=== PATIENT | female | born 1990 | race Caucasian/White ===

== ENCOUNTER 2021-05-04 12:14 | Outpatient (REF) | payer OTHER, SELFPAY ==
--- NOTE | ~2021-05-04 | XR_ITS ---
EXAMINATION: XR CERVICAL SPINE CLINICAL INFORMATION: Cervical disc herniation COMPARISON: MRI cervical spine from 08/21/2018 TECHNIQUE: Cervical spine, 5 views FINDINGS: The craniocervical junction is normal. The dens and atlantodental articulation are intact. The cervical vertebra have normal height. Alignment is normal. No fracture, subluxation or prevertebral soft tissue swelling. There is straightening of the cervical lordosis. Mild disc space narrowing and small anterior osteophytes at C6-C7. Mild uncovertebral joint hypertrophy with mild neural foraminal narrowing on the right at C4-C5, C5-C6 and C6-C7. The visualized lung apices are normal. XR/XR cervical spine min 6V IMPRESSION: * The cervical vertebra have normal alignment. * Mild discovertebral degenerative change at C6-C7. * Mild right-sided uncovertebral joint hypertrophy is noted at C4-C5, C5-C6 and C6-C7.
== END 2021-05-04 12:15 | disposition home or self-care (01) ==
LOC: HO.XRAY 12:14
PROVIDERS: PCP Internal Medicine; Visit Provider Psychiatry & Neurology Neurology
DX: M50.20 Other cervical disc displacement, unspecified cervical region (principal)
CPT/HCPCS: 72052

== ENCOUNTER 2021-07-20 15:53 | Outpatient (REF) | payer OTHER, SELFPAY ==
--- NOTE | ~2021-07-20 | MR_ITS ---
EXAMINATION: MR CERVICAL SPINE WITHOUT CONTRAST CLINICAL INFORMATION: Disc herniation. COMPARISON: Plain films of the cervical spine 05/04/2021. MRI scan of the cervical spine 08/21/2018. TECHNIQUE: MRI of the cervical spine was obtained using routine sequences without contrast. FINDINGS: VERTEBRAL BODIES AND PARASPINAL SOFT TISSUES: There is mild reversal of the cervical lordosis. There is narrowing of intervertebral disc height at C6-C7, and there are mild edematous endplate signal changes posteriorly and toward the right at this level. Vertebral body heights are maintained and no fractures are demonstrated. Overall, marrow signal is homogenous. There are a few mildly prominent lymph nodes at multiple levels in the neck bilaterally, demonstrated on prior imaging. The right maxillary sinus appears clear on the current study. CERVICOMEDULLARY JUNCTION AND VISUALIZED POSTERIOR FOSSA: The craniocervical and posterior fossa structures are normal. Accounting for artifact, spinal cord signal appears normal. SPINAL LEVELS: C2-C3: The facet joints appear normal bilaterally. Posterior disc contour is normal. There is no spinal cord compression or central stenosis. The neural foramina are patent bilaterally. C3-C4: The facet joints appear normal bilaterally. There is a small left paracentral disc protrusion, but there is no spinal cord compression or central stenosis. The neural foramina are patent bilaterally. C4-C5: The facet joints appear normal. There is a shallow posterior disc protrusion with minimal effacement of CSF ventral to the spinal cord. There is no spinal cord compression or central stenosis. There are uncovertebral osteophytes, and there is mild right foraminal narrowing. C5-C6: The facet joints appear normal. There is a small right-sided disc protrusion. There is no central stenosis or foraminal narrowing. There is mild narrowing of the right neural foramen. C6-C7: The facet joints appear normal bilaterally. There has been interval increase in the posterior disc protrusion at this level with some effacement of CSF ventral to the spinal cord, but there is no spinal cord compression or central stenosis. There is mild bilateral foraminal narrowing. C7-T1: The facet joints appear normal bilaterally. Posterior disc contour is normal. There is no spinal cord compression or central stenosis. The neural foramina are patent bilaterally. MR/MR cervical spine wo con IMPRESSION: 1. There has been interval increase in the posterior disc protrusion at C6-C7. There is no central stenosis or cord compression. There is mild bilateral foraminal narrowing. 2. At C4-C5 there is a shallow posterior disc protrusion. There is no spinal cord compression or central stenosis. There is mild right foraminal narrowing. 3. At C5-C6 there is a small right-sided disc protrusion with right foraminal narrowing. There is no central stenosis at this level.
== END 2021-07-20 15:54 | disposition home or self-care (01) ==
LOC: HO.MRI 15:53
PROVIDERS: Visit Provider Psychiatry & Neurology Neurology
DX: M50.20 Other cervical disc displacement, unspecified cervical region (principal); Q07.00 Arnold-Chiari syndrome without spina bifida or hydrocephalus
CPT/HCPCS: 72141

== ENCOUNTER → 2021-09-03 10:22 | Outpatient (BNVA) | payer OTHER, SELFPAY | PROVIDERS: PCP Internal Medicine; Visit Provider Internal Medicine | DX: Q07.00 Arnold-Chiari syndrome without spina bifida or hydrocephalus (principal); M79.7 Fibromyalgia; G89.29 Other chronic pain; R51.9 Headache, unspecified; Z88.8 Allergy status to other drugs, medicaments and biological substances; Z88.1 Allergy status to other antibiotic agents; Z91.041 Radiographic dye allergy status | CPT/HCPCS: 99202 ==

== ENCOUNTER 2023-04-26 08:35 | Outpatient (REF) | payer OTHER, SELFPAY ==
--- NOTE | ~2023-04-26 | MR_ITS ---
EXAMINATION: MR CERVICAL SPINE WITHOUT CONTRAST CLINICAL INFORMATION: Disc herniation. Arnold-Chiari malformation. COMPARISON: MRI scan of the cervical spine 07/20/2021. TECHNIQUE: MRI of the cervical spine was obtained using routine sequences without contrast. FINDINGS: VERTEBRAL BODIES AND PARASPINAL SOFT TISSUES: The study redemonstrates reversal of the normal cervical lordosis. There is mild narrowing of intervertebral disc height anteriorly at C6-C7. There has been interval decrease in the edematous endplate signal changes posteriorly at this level. Vertebral body heights are maintained, and no fractures are demonstrated. Overall, marrow signal is homogenous. The study redemonstrates multilevel nonspecific mildly prominent lymph nodes. There is minimal opacification of the posterior left maxillary sinus. CERVICOMEDULLARY JUNCTION AND VISUALIZED POSTERIOR FOSSA: The study redemonstrates the sequelae of the Chiari decompression with postoperative changes in the paraspinal soft tissues dorsally. The posterior fossa structures appear normal. Accounting for artifact, spinal cord signal appears normal. SPINAL LEVELS: C2-C3: The facet joints appear normal bilaterally. Posterior disc contour is normal. There is no spinal cord compression or central stenosis. The neural foramina are patent bilaterally. C3-C4: The facet joints appear normal bilaterally. There is a shallow posterior disc protrusion without compression of the spinal cord or central stenosis. The neural foramina are patent bilaterally. C4-C5: The facet joints appear normal. There is a shallow broad-based posterior disc protrusion without significant mass effect on the thecal sac and there is no cord compression or central stenosis. There are uncovertebral osteophytes, and there is mild to moderate right foraminal narrowing. C5-C6: The facet joints appear normal bilaterally. There is a shallow posterior disc protrusion without mass effect on the thecal sac and there is no cord compression or central stenosis. There are right-sided uncovertebral osteophytes and there is moderate to severe foraminal narrowing. C6-C7: The facet joints appear normal bilaterally. There is a posterior protrusion which is slightly more prominent to the left of midline with minimal distortion the ventral thecal sac, similar compared to prior imaging. There is no cord compression or central stenosis. There are uncovertebral osteophytes and there is moderate right and mild left foraminal narrowing. C7-T1: There is mild left facet arthropathy. Posterior disc contour is normal. There is no central stenosis or cord compression the neural foramina are patent bilaterally. MR/MR cervical spine wo con IMPRESSION: 1. The study redemonstrates the sequelae of the Chiari I decompression. 2. At C4-C5 there is a shallow broad-based posterior disc protrusion without cord compression or central stenosis. There is mild to moderate right foraminal narrowing. 3. At C5-C6 there is a shallow posterior disc protrusion without cord compression or central stenosis. There are right-sided uncovertebral osteophytes and there is moderate to severe right foraminal narrowing. 4. At C6-C7 there is a posterior disc protrusion which is slightly more prominent to the left of midline. There is no cord compression or central stenosis. There is moderate right and mild left foraminal narrowing.
== END 2023-04-26 08:36 | disposition home or self-care (01) ==
LOC: HO.MRI 08:35
PROVIDERS: Visit Provider Psychiatry & Neurology Neurology
DX: M50.20 Other cervical disc displacement, unspecified cervical region (principal); G93.5 Compression of brain
CPT/HCPCS: 72141

== ENCOUNTER 2023-12-15 07:19 | Outpatient (REF) | payer OTHER, SELFPAY ==
--- NOTE | ~2023-12-15 | MR_ITS ---
EXAMINATION: MR BRAIN WITHOUT CONTRAST CLINICAL INFORMATION: 33-year-old with history of previous Chiari decompression, with posterior headaches. COMPARISON: 04/26/2023 MRI cervical spine, 07/21/2015 MRI brain. TECHNIQUE: MRI of the brain was obtained using routine sequences without contrast. FINDINGS: Brain Volume: Within normal limits within the limitations of qualitative assessment. Structural: Redemonstrated is evidence of a previous posterior suboccipital craniectomy for Chiari I decompression, with postoperative changes stable from previous MRI of the cervical spine, with an improvement in the appearance of the cerebellar tonsils when compared to the previous MRI. No fluid collections are seen in this region. Brain and Meninges: DWI sequence demonstrates no restricted diffusion to suggest acute or subacute cerebral ischemia. The brain parenchyma is otherwise normal in morphology and signal intensity, stable in appearance from the previous study. No extra-axial fluid collections, space-occupying process or mass effect. Gradient refocused imaging demonstrates no abnormal susceptibility-weighted signal loss to suggest hemorrhage, hemosiderin staining or abnormal mineralization. Ventricles and Subarachnoid Spaces: The ventricular system and subarachnoid spaces are within normal range; there is no hydrocephalus. Orbital Structures: The visualized orbital structures are grossly unremarkable within the limitations of the study. Vascular: Signal voids are noted in the visualized major intracranial vessels. Osseous Structures, Sinuses/Mastoids, Extracranial Soft Tissues: Osseous marrow signal intensity is grossly unremarkable in appearance. There is some mucosal thickening in the maxillary sinuses bilaterally with an air-fluid level noted in the left maxillary sinus on current study and resolution of a large retention cyst noted retrospectively in the right maxillary sinus on the previous exam. Correlate clinically for any evidence of sinusitis. MR/MR head/brain wo con IMPRESSION: 1. Status post suboccipital craniectomy for Chiari I decompression, with improvement in the appearance of the cerebellar tonsils when compared to the previous MRI of the brain, with stable postoperative changes when compared to the previous MRI of the cervical spine. 2. Otherwise unremarkable noncontrast MRI of the brain. 3. Paranasal sinus mucosal inflammatory changes with an air-fluid level in the left maxillary sinus on current study. Correlate clinically for any evidence of sinusitis.
== END 2023-12-15 07:20 | disposition home or self-care (01) ==
LOC: HO.MRI 07:19
PROVIDERS: PCP Internal Medicine; Visit Provider Registered Nurse
DX: Q07.00 Arnold-Chiari syndrome without spina bifida or hydrocephalus (principal)
CPT/HCPCS: 70551

== ENCOUNTER 2025-05-19 11:00 | Outpatient (AMB) | payer OTHER, SELFPAY ==
--- NOTE | 2025-05-19 11:07 | MHC.OFFVIS ---
Intake Visit Reasons: 6m Allergies amoxicillin Allergy (Verified 05/19/25 11:13) Unknown Iodinated Contrast Media Allergy (Verified 05/19/25 11:13) Unknown sulfabenzamide Allergy (Verified 05/19/25 11:13) Hives Medication List - Last Reconciled 05/19/25 by Sharonda Rob, [facility] alprazolam 1 mg orally 1 tablet in the morning and bedtime, and 1/2 tab at 1pm; 90 days cyclobenzaprine 10 mg PO BID PRN 30 days diclofenac sodium 75 mg PO BID linaclotide (Linzess) 145 mcg PO DAILY methylphenidate HCl 10 mg PO BID 30 days naloxone 4 mg/actuation (Narcan) 4 mg intranasally PRN; spray 1 dose into ONE nostril; alternate nostrils w each dose until help arrives 30 days tirzepatide (weight loss) (Zepbound) 10 mg subcut QWEEK tramadol 50 mg PO Q8H PRN 90 days HPI Comments Details: She was doing okay. Headaches were okay and she did not try verapamil. She was still dealing with GI issues, and was following with Junie MELVIN, had multiple tests done which apparently were okay. She was not taking tramadol or methylphenidate as often because she was worried about GI side effects with medication. She graduated this spring. She was having some more pain and stiffness to neck, taking cyclobenzaprine as needed which helps some and using heat. She was having some numbness and tingling down arms, R > L, that would come and go. Mood was okay, anxiety controlled. Saw ENT in early 2024, no findings. Previously was getting more headaches and gets some quick flashes of light in vision. Has not started verapamil due to GI issues. Did few sessions of acupuncture, but stopped as not covered by insurance. Has not started PT again. Methylphenidate helps with focus and able to complete tasks. Sleep was okay.? Was getting headaches, primarily to right side and back of head into neck. R neck and shoulder stiffness and some tension, using cyclobenzaprine. Pain and pressure to R ear beginning in 06/2023, saw ENT in 02/2024 and at end of 2022 without findings. Chronic sinus issues, had nasal cavity cyst removed 10/2015, 12/2016, 2018. s/p decompression of Arnold Chiari, multiple disc herniation. Saw psychiatry in the past who prescribed Cymbalta and topiramate which reportedly caused eye issues. . [facility] Medical History (Updated 05/19/25 @ 11:11 by Sharonda Rob CNP) Cervical disc herniation Arnold-Chiari malformation Myalgia Myofascial pain syndrome Fibromyalgia Depression Anemia Chronic headache disorder Syncope and collapse Review of Systems Const Denies chills, Denies daytime sleepiness, Reports difficulty sleeping, Denies fatigue, Denies fever(s), Denies frequent falls, Reports headache(s), Denies increased appetite, Denies poor appetite, Denies snoring, Denies weakness, Denies weight gain and Denies weight loss Eyes Denies loss of vision ENT Denies vertigo, Denies dizziness, Reports headache(s) and Reports neck pain Card Denies chest pain at rest, Denies chest pain with activity, Denies syncope, Denies leg edema, Denies palpitations, Denies dyspnea and Denies dyspnea on exertion Resp Denies cough, Denies dyspnea, Denies dyspnea on exertion and Denies snoring GI Denies abdominal pain, Denies constipation, Denies heartburn, Denies diarrhea and Denies nausea Denies urinary frequency, Denies urinary incontinence and Denies urinary urgency Musc Denies abnormal gait, Denies back pain, Reports myalgias, Denies arthralgias, Reports neck pain, Denies numbness and Denies tingling Neuro Denies abnormal gait, Denies vertigo, Denies dizziness, Denies syncope, Denies frequent falls, Reports headache(s), Denies lack of coordination, Denies loss of vision, Denies memory loss, Denies numbness, Denies Other visual disturbances, Denies restless legs, Denies seizure-like activity, Denies tingling, Denies paresthesias, Denies tremor(s) and Denies weakness Psych Reports anxiety, Denies depression, Denies auditory hallucinations, Denies memory loss and Denies visual hallucinations Endo Denies fatigue and Denies palpitations Physical Exam Const Other: General Appearance:? normal, in no acute distress. Heart:? S1, S2 normal, no murmurs. Lungs:? clear anteriorly and posteriorly. Musculoskeletal:? normal. Extremities:? no edema. Psych:? alert, oriented, cognitive function intact, cooperative with exam. Neuro Other: Abnormal Neurological Findings:?Multiple trigger points in the paraspinal muscles, trapezius and rhomboids bilaterally, R > L. Mental Status: alert and oriented X 3. Normal attention, orientation, memory, and affect. Cranial Nerves: Pupils are equal, round, and reactive to light. External ocular muscles are intact. Visual bailey are full, no ptosis. Face is symmetrical, no facial weakness or droop. Facial sensations are normal. Tongue protrudes in midline. Palate elevates symmetrically. Shoulder shrugging is normal Motor Examination: Normal muscle tone, bulk and strength. No atrophy or fasciculations. No drift of the extended upper extremities. DTR 2+. Plantars are flexor. Sensory Exam: Normal light touch, temperature, pinprick, vibration, and joint-position sensations. Rhomberg sign is absent. Coordination: No ataxia. No titubation. Gait Exam: Within normal limits. Cerebellar Signs: [id number] is okay. Extrapyramidal System: No tremor, rigidity with normal facial expressions. No bradykinesia. No bradyphrenia. Normal arm swing and posture. No propulsion or retropulsion. Speech: Normal. Results Reviewed Results Reviewed: 04/2023 MRI C spine: At C4-C5 there is a shallow broad-based posterior disc protrusion without cord compression or central stenosis. There is mild to moderate right foraminal narrowing. 3. At C5-C6 there is a shallow posterior disc protrusion without cord compression or central stenosis. There are right-sided uncovertebral osteophytes and there is moderate to severe right foraminal narrowing. 4. At C6-C7 there is a posterior disc protrusion which is slightly more prominent to the left of midline. There is no cord compression or central stenosis. There is moderate right and mild left foraminal narrowing. Assessment & Plan Assessment & Plan (1) Migraine: Code(s): G43.909 - Migraine, unspecified, not intractable, without status migrainosus Category: Medical Qualifiers: Intractability: not intractable Migraine type: unspecified Status migrainosus presence: without status migrainosus Qualified Code(s): G43.909 - Migraine, unspecified, not intractable, without status migrainosus Plan: Headaches were okay at this time. She did not start verapamil, will hold off on starting medication at this time as headaches are not significantly bothersome, can consider trying medication in the future if headaches worsen. (2) ADD (attention deficit disorder): Code(s): F98.8 - Other specified behavioral and emotional disorders with onset usually occurring in childhood and adolescence Category: Medical Qualifiers: Attention deficit type: unspecified type Qualified Code(s): F98.8 - Other specified behavioral and emotional disorders with onset usually occurring in childhood and adolescence Plan: Continue methylphenidate 10mg 1 tablet twice a day #60 for 30 days. (3) Cervical disc disease: Code(s): M50.90 - Cervical disc disorder, unspecified, unspecified cervical region Category: Medical Plan: Continue tramadol 50mg 1 tablet as needed q8h for pain #90 for 30 days. Continue cyclobenzaprine 10mg 1 tablet as needed twice a day for muscle spasm/pain #60 for 30 days. MRI C-spine ordered. Follow up in 3 months (after MRI) or sooner as needed. (4) Anxiety: Code(s): F41.9 - Anxiety disorder, unspecified Category: Medical Plan: Continue alprazolam 1mg 1 tablet in the morning and at bedtime, and 1/2 tablet at 1pm #75 for 30 days. Continue naloxone 4mg/0.1mL nasally as needed. Plan Meds tried: topiramate, propranolol Orders: Orders MR cervical spine wo con Today M50.90 - Cervical disc disorder, unspecified, unspecified cervical region Coding Level of Care Code Est Pt Level 4 (49475) Diagnoses Migraine without status migrainosus, not intractable, unspecified migraine type G43.909 Intractability: not intractable Migraine type: unspecified Status migrainosus presence: without status migrainosus Attention deficit disorder, unspecified type F98.8 Attention deficit type: unspecified type Cervical disc disease M50.90 Anxiety F41.9
--- OUTSIDE RECORDS SUMMARY | 2025-05-19 14:07 | XMS_ITS | Clinical Summary ---
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 Name Role Phone Unavailable Primary Care Provider Unavailabl e Social History Tobacco Use Types Packs/Day Years Used Date Smoking Tobacco: Never Assessed Comments Unknown Sex and Gender Information Value Date Recorded Sex Assigned at Not on file Legal Sex Female 6:09 PM EDT Gender Identity Not on file Sexual Orientation Not on file Plan of Treatment Health Maintenance Due Date Last Done Comments MMR Vaccines (1 of 1 - Stand zoraida series) 1989 Varicella Vaccines (1 of 2 - 13+ 2-dose series) 2001 DTaP,Tdap,and Td Vaccines (1 - Tdap) 2006 Hepatitis B Vaccines (1 of 3 - 19+ 3-dose series) 2007 HPV Vaccines (1 - 3-dose SCD M series) 2015 Influenza Vaccines (#1) 2025 COVID-19 Vaccine ( - 2024-2 6 season) 2025 HIB Vaccines Aged Out No longer eligi ble based on patient's age to complete this topic Hepatitis A Vaccines Aged Out No long er eligible based on patient's age to complete this topic IPV Vaccines Aged Out No longer eligi ble based on patient's age to complete this topic Men B Vaccine Aged Out No longer elig ible based on patient's age to complete this topic Meningococcal Vaccine Aged Out No reta cesar eligible based on patient's age to complete this topic Pneumococcal Vaccine Aged Out No long er eligible based on patient's age to complete this topic
--- OUTSIDE RECORDS SUMMARY | 2025-05-19 14:08 | XMS_ITS | Clinical Summary ---
Author Organization [facility] Address [address] [place] [address] Phone Care Team Providers Care Control Room Agent Name Role Phone Sosa Piper MD Primary Care Provider Allergies Active Allergy Reactions Criticality Noted Date Comments Amoxicillin Trihydrate 03/09/2012 Iodinated Contrast Media Rash 09/19/2016 Sulfa (Sulfonamide Antibiotics) 07/27 Sulfamethoxazole-Trimethoprim Hives 2009 Medications ALPRAZolam (XANAX) 1 mg tablet Take 1 Tablet by mouth 3 times daily as needed for Sleep or Anxiety. Per neuro 04/22/20 22 Active cyclobenzaprin e (FLEXERIL) 10 mg tablet Take 1 Tablet by mouth 2 times daily as needed for Muscle spasms. For neck pain- prescribed by 04/22/20 22 Active etonogestreL-e thinyl estradioL (NUVARING) 0.12-0.015 mg/24 hr vaginal ring INSERT 1 VAGINAL RING EVERY MONTH BY VAGINAL ROUTE FOR 28 DAYS. 02/23/20 23 Active methylphenidat e (RITALIN) 10 mg tablet 02/22/20 22 Active traMADoL (ULTRAM) 50 mg tablet Take 1 tablet (50 mg total) by mouth every 8 (eight) hours. 08/10/19 22 Active medical marijuana [employer] med Active cetirizine (ZyrTEC) 10 mg tablet Take 1 tablet (10 mg total) by mouth 1 (one) time each day. Active tirzepatide, weight loss, (Zepbound) 10 mg/0.5 mL injectionIndic ations:Obstruc tive sleep apnea,Obesity (BMI 30.0-34.9) Inject 0.5 mL (10 mg total) under the skin every 7 (seven) days. 2 mL 04/23/20 25 Active linaCLOtide (Linzess) 145 mcg capsule Take 1 capsule (145 mcg total) by mouth 1 (one) time each day before breakfast. 90 each 3 04/29/20 25 026 Active Linzess 145 mcg capsule TAKE 1 CAPSULE (145 MCG TOTAL) BY MOUTH ONCE DAILY 30 capsule 2 01/21/20 25 025 Discontinued tirzepatide, weight loss, (Zepbound) 7.5 mg/0.5 mL injectionIndic ations:Obstruc tive sleep apnea,Obesity (BMI 30.0-34.9) Inject 0.5 mL (7.5 mg total) under the skin every 7 (seven) days. 2 mL 03/25/20 25 025 Discontinued(Do se adjustment) Active Problems Problem Noted Date Diagnosed Date Chronic back pain 04/25/2024 Hyperlipidemia 04/24/2023 Vitamin B12 deficiency 04/24/2023 Vitamin D deficiency 04/24/2023 Nocturnal hypoxemia 12/20/2021 Obstructive sleep apnea 12/20/2021 Overview (04/25/2024): [facility] diagnostic polysomnogram 11/26/2021; weight 220; BMI 37. AHI 5. REM AHI 20. 4 obstructive apneas and 36 hypopneas. Average oxygen saturation 92% with oxygen pato 82%. Obstructive sleep apnea-mild overall; moderate in rem with mostly hypopneas; nocturnal hypoxemia noted on 2021 diagnostic polysomnogram. Cervical spondylosis 08/25/2021 Overview (04/25/2024): Last Assessment & Plan: Patient describes chronic posterior head and neck pain, 10+ years, tried Chiari decompression 2015, does not feel it helped her symptoms. She states in the last year the pain has continued to worsen, she rates it an 8/10 constant pain in the posterior neck and head, intrascapular region/trapezius pain. She been in and out of physical therapy for 10 years, currently is in PT and feels it helps temporarily while she is there but then the symptoms return. She does stretching, exercises, heat, massage. She has not tried acupuncture or injections. She is a non-smoker. She does not recall any history of tick bites or Lyme's disease. Occasionally she will have symptoms down the arms with numbness tingling in the hands. She sees Dr. Roberto, last saw him in July, had previous EMG nerve conduction study left upper extremity [address] Roberto prescribed her tramadol and diclofenac. [place] [facility] [place] has mild reversal of cervical lordosis, C6-7 spondylosis with disc bulging. no significant findings of central or foraminal stenosis. I reviewed patient's MRI films with her in detail, discussed conservative treatment options that she has not yet tried including TENS unit and PT, acupuncture, injections. At this point she feels her neck pain is significantly limiting her daily life, making it difficult to be active with her children, limits her cervical range of motion. I will review her films with Dr. Bhagat, see if she recommends any surgical intervention. At this time patient plans on continuing PT with trying TENS unit and looking into acupuncture. She had looked into it in the past, lost her referral and ended up not starting the acupuncture. She does feel she would pursue surgical intervention, like C6-7 ACDF or artificial disc replacement if it is recommended by Dr. Bhagat. All questions answered on today's visit. We will also call Dr. Roberto's office for his most recent office note. Chest pain 09/02/2020 Overview (04/25/2024): Last Assessment & Plan: Chest pain has resolved with acupuncture and physical maneuver. She has felt much better and is more relaxed. She has no exertional chest discomfort or shortness of breath with quite intense exercise. I will hold off further ischemia work-up. Continue exercise. Shortness of breath 09/02/2020 Palpitations 08/31/2020 Nasal polyp 03/12/2018 Overview (04/25/2024): inflammatory Seroma of breast 08/25/2017 Abdominal pannus 06/23/2017 Arnold-Chiari syndrome ([facility] V24, [facility] V28 ) 06/23/2017 Overview (04/25/2024): S/p surgery- 2016 Dr Yu Intertrigo 06/23/2017 Chronic headache 01/08/2013 Immunizations Immunization Administration Dates Next Due Influenza Quadravalent, MDCK , 0.5ml, preservative free (Flucelvax) 6mo and older 03/21/2020,03/04/2019 Influenza trivalent, 0.5mL, preservative free (Fluarix; FluLaval; Fluzone) ages 6mo and older (Afluria) 3 years and older 02/29/2012 Influenza trivalent, with pr eservative (Fluzone; Afluria) 6mo and older 02/29/2012 Pneumococcal polysaccharide 23 valent (Pneumovax 23) 2yo and older 01/06/2016 Td Tetanus diptheria (Tdvax) 7yo and older 12/21 Tdap Tetanus diptheria acell ular pertussis (Boostrix; Adacel) 7yo and older 11/29/2017 Surgical History Surgery Date Site/Laterality Comments SECTION PROCEDURE: PA DELIVERY ONLY BREAST REDUCTION 2017 Bilateral PROCEDURE: PA BREAST REDUCTION OTHER SURGICAL HISTORY 01/04/2016 PROCEDURE: HISTORY OTHER; COMMENT: Dr. Gigi Hernandez OTHER SURGICAL HISTORY PROCEDURE: HISTORY OTHER; COMMENT: Nasal surgery, polyp/cyst removal 2015, 2016, 2017 Medical History Medical History Date Comments Chronic back pain DX:Chronic bin k pain Nasal polyp 03/12/2018 DX:Nasal polyp; COMMENT: inflammatory Anxiety disorder DX:Anxiety diso rder Fibromyalgia DX:Fibromyalgia Chiari's syndrome ([facility] V 24, [facility] V28) Constipation Family History Medical History Relation Name Comments Other: psoriatic arthritis Brother Diabetes Father No Known Problems Maternal Grandfather No Known Problems Maternal Grandmother Other: etoh Mother Relation Name Status Comments Brother Alive Father Alive Maternal Grandfather Maternal Grandmother Mother Alive Son Alive Social History Tobacco Use Types Packs/Day Years Used Date Smoking Tobacco: Former Cigarettes 1 Q uit: 07/19/2010 Smokeless Tobacco: Never Tobacco Cessation:Counseling Given: Not Answered Alcohol Use Standard Drinks/Week Comments Yes 0 (1 standard drink = 0.6 oz pur e alcohol) Interpersonal Safety Answer Date Record ed Physical Abuse Unrecognized value 08/06/2024 Verbal Abuse Unrecognized value 08/06/2024 Comments No Sex and Gender Information Value Date Recorded Sex Assigned at Female 08/01/2024 8:15 AM EST Legal Sex Female 11:16 PM EST Gender Identity Female 08/01/2024 8:15 AM EST Sexual Orientation Straight 08/01/2024 8: 15 AM EST Obstetrics History Last Filed Vital Signs Vital Sign Reading Time Taken Comments Blood Pressure 125/86 01/27/2025 7:31 AM EDT Pulse 75 01/27/2025 7:31 AM EDT Temperature 36.2 C (97.2 F) 01/27/2025 7:31 AM EDT Respiratory Rate 16 08/06/2024 4:16 PM EST Oxygen Saturation 98% 10/11/2024 1:00 PM EDT Inhaled Oxygen Concentration - - Weight 93.4 kg (206 lb) 01/27/2025 7:31 AM EDT Height 165.1 cm (5' 5 ) 01/27/2025 7:31 AM EDT Body Mass Index 34.28 01/27/2025 7:31 AM EDT Plan of Treatment Upcoming Encounters Date Type Department Care Team (Late st Contact Info) Description 05/29/2025 8:00 AM EST Office Visit Adult Medicine - [address] [id number] Efra Buckley PA [address] [place] [address] Health Maintenance Due Date Last Done Comments Hepatitis B Vaccines (1 of 3 - 19+ 3-dose series) 2007 HPV Vaccines (1 - 3-dose SCDM series) 2015 HIV Screening 06/04/2022 Social Influencers of Health Screening 06/04/2022 Cervical Cancer Screening: Pap Smear 04/15/2023 04/15/2020 Depression Screening 06/26/2024 01/23/2024 COVID-19 Vaccine ( season) 2025 10/01/2020, 09/10/2020 Influenza Vaccine (#1) 2025 0, 03/04/2019, 02/29/2012, Additional history exists DTaP,Tdap,and Td Vaccines (3 - Td or Tdap) 11/30/2027 11/29/2017, 12/22/2007 Colorectal Cancer Screening: Colonoscopy 08/06/2029 08/06/2024 Cholesterol Screening (Lipid Panel) 01/27/2030 01/27/2025, 01/23/2024, 01/23/2024 RSV Immunization Adult Patients (1 - 1-dose 75+ series) 2063 Pneumococcal Vaccine: Pediatrics (0 to 5 Years) and At-Risk Patients (6 to 49 Years) Aged Out 01/06/2016 No longer eligible based on patient's age to complete this topic Hepatitis C Screening Completed 01/27/2025 HIB Vaccines Aged Out No longer eligi ble based on patient's age to complete this topic Hepatitis A Vaccines Aged Out No long er eligible based on patient's age to complete this topic IPV Vaccines Aged Out No longer eligi ble based on patient's age to complete this topic MMR Vaccines Aged Out No longer eligi ble based on patient's age to complete this topic Meningococcal ACWY Vaccine Aged Out N o longer eligible based on patient's age to complete this topic Meningococcal B Vaccine Aged Out No l onger eligible based on patient's age to complete this topic RSV Immunization Patients Under 20 months Aged Out No longer eligible based on patient's age to complete this topic Varicella Vaccines Aged Out No longer eligible based on patient's age to complete this topic Procedures Procedure Name Priority Date/Time Associated Diagnosis Comments HEPATITIS C ANTIBODY Routine 01/27/2025 2:38 PM EDT Routine general medical examination at a health care facility LIPID PANEL WITH REFLEX TO DIRECT LDL Routine 01/27/2025 2:38 PM EDT Routine general medical examination at a health care facility COLONOSCOPY Routine 08/06/2024 3:55 PM EST Change in bowel habits HM DEPRESSION SCREENING Routine 01/23/2024 HM PAP SMEAR Routine 04/15/2020 from Last 3 Months or Most Recently Relevant to Health Maintenance Results * Hepatitis C antibody (01/27/2025 2:38 PM EDT) [facility] Hepatitis C Antibody Negative Negative LAB CHEMISTRY METHOD 01/27/2025 7:39 PM EDT [facility] Blood Venous blood specimen / Unknown Venipuncture / Unknown 01/27/2025 2:38 PM EDT 01/27/2025 2:38 PM EDT us Efra CASTAÑEDA LAB BLOOD ORDERABLES Final Re sult [facility] [address] [place] [address], [place] [phone] * Lipid panel with reflex to direct LDL (01/27/2025 2:38 PM EDT) [facility] Cholesterol 191 0 - 200 mg/dL LAB CHEMISTRY METHOD 01/27/2025 6:30 PM EDT [facility] Triglycerides 117 0 - 150 mg/dL LAB CHEMISTRY METHOD 01/27/2025 6:30 PM EDT [facility] HDL 72 >=40 mg/dL LAB CHEMISTRY METHOD 01/27/2025 6:30 PM EDT [facility] LDL Calculated 96 0 - 100 mg/dL LAB CHEMISTRY METHOD 01/27/2025 6:30 PM EDT [facility] VLDL Cholesterol Malik 23.4 mg/dL LAB CHEMISTRY METHOD 01/27/2025 6:30 PM EDT [facility] Non HDL Chol. (LDL+VLDL) 119 <145 mg/dL LAB CHEMISTRY METHOD 01/27/2025 6:30 PM EDT [facility] Chol/HDL Ratio 2.7 0.0 - 4.4 LAB CHEMISTRY METHOD 01/27/2025 6:30 PM T [facility] Blood Venous blood specimen / Unknown Venipuncture / Unknown 01/27/2025 2:38 PM EDT 01/27/2025 2:38 PM EDT us Efra CASTAÑEDA LAB BLOOD ORDERABLES Final Re sult [facility] [address] [place] [address], [place] [phone] * COLONOSCOPY Anesthesia - MAC; [facility] ENDOSCOPY (08/06/2024 3:55 PM EST) Anatomical Region Laterality Modality Endoscopy 08/06/2024 3:28 PM EST Impressions 08/06/2024 3:56 PM EST - Non-bleeding internal hemorrhoids. - One 6 mm polyp in the cecum, removed with a cold snare. Resected and retrieved. - The entire examined colon is normal. Biopsied. - The examination was otherwise normal on direct and retroflexion views. Recommendation: - - Discharge patient to home. - High fiber diet. - Continue present medications. - Await pathology results. - Repeat colonoscopy for surveillance based on pathology results. - Functional constipation suspected. Treatment as such recommended. Narrative 08/06/2024 3:56 PM EST [facility] Patient Name: Viji Alfonso Procedure Date: 08/06/2024 3:28 PM Date of : 1990 Age: 33 Gender: Female Note Status: Finalized Attending MD: Alireza Gan DO, [id number] Procedure Date No Time: 08/06/2024 Procedure: Colonoscopy Indications: Incidental change in bowel habits noted Providers: Alireza Gan DO Referring MD: Sosa Piper MD Medicines: Monitored Anesthesia Care Complications: No immediate complications. Estimated blood loss: Minimal. Estimated Blood Loss: Estimated blood loss was minimal. Procedure: Pre-Anesthesia Assessment: - - Prior to the procedure, a History and Physical was performed, and patient medications and allergies were reviewed. The patient is competent. The risks and benefits of the procedure and the sedation options and risks were discussed with the patient. All questions were answered and informed consent was obtained. Patient identification and proposed procedure were verified by the physician, the nurse, the anesthesiologist, the meat and seafood manager and the tire technician in the pre-procedure area in the endoscopy suite. Mental Status Examination: alert and oriented. Airway Examination: normal oropharyngeal airway and neck mobility. Respiratory Examination: clear to auscultation. CV Examination: normal. Prophylactic Antibiotics: The patient does not require prophylactic antibiotics. Prior Anticoagulants: The patient has taken no anticoagulant or antiplatelet agents. ASA Grade Assessment: II - A patient with severe systemic disease. After reviewing the risks and benefits, the patient was deemed in satisfactory condition to undergo the procedure. The anesthesia plan was to use monitored anesthesia care (MAC). Immediately prior to administration of medications, the patient was re-assessed for adequacy to receive sedatives. The heart rate, respiratory rate, oxygen saturations, blood pressure, adequacy of pulmonary ventilation, and response to care were monitored throughout the procedure. The physical status of the patient was re-assessed after the procedure. After I obtained informed consent, the scope was passed under direct vision. Throughout the procedure, the patient's blood pressure, pulse, and oxygen saturations were monitored continuously. The Colonoscope was introduced through the anus and advanced to the terminal ileum. The colonoscopy was performed without difficulty. The patient tolerated the procedure well. The quality of the bowel preparation was good. Findings: The perianal and digital rectal examinations were normal. Non-bleeding internal hemorrhoids were found. The hemorrhoids were medium-sized. A 6 mm polyp was found in the cecum. The polyp was sessile. The polyp was removed with a cold snare. Resection and retrieval were complete. Estimated blood loss was minimal. The colon (entire examined portion) appeared normal. Biopsies were taken with a cold forceps for histology. Estimated blood loss was minimal. The exam was otherwise without abnormality on direct and retroflexion views. Procedure Code(s): --- Professional --- 87557, Colonoscopy, flexible; with removal of tumor(s), polyp(s), or other lesion(s) by snare technique 31143, 59, Colonoscopy, flexible; with biopsy, single or multiple Diagnosis Code(s): --- Professional --- K64.8, Other hemorrhoids D12.0, Benign neoplasm of cecum CPT copyright 2020 [employer]. All rights reserved. The codes documented in this report are preliminary and upon lead software qa engineer review may be revised to meet current compliance requirements. ALIREZA Gan DO 08/06/2024 3:56:43 PM This report has been signed electronically.Alireza Gan DO Number of Addenda: 0 Note Initiated On: 08/06/2024 3:28 PM Scope Withdrawal Time: 0 hours 6 minutes 42 seconds Scope In: 3:42:05 PM Scope Out: 3:54:14 PM Endoscopy Department at [facility] - [address] [place] [id number] Procedure Note Alireza Gan DO - 08/06/2024 [facility] Patient Name: Viji Alfonso Procedure Date: 08/06/2024 3:28 PM Date of : 1990 Age: 33 Gender: Female Note Status: Finalized Attending MD: Alireza Gan DO, [id number] Procedure Date No Time: 08/06/2024 Procedure: Colonoscopy Indications: Incidental change in bowel habits noted Providers: Alireza Gan DO Referring MD: Sosa Piper MD Medicines: Monitored Anesthesia Care Complications: No immediate complications. Estimated blood loss: Minimal. Estimated Blood Loss: Estimated blood loss was minimal. Procedure: Pre-Anesthesia Assessment: - - Prior to the procedure, a History and Physicalwas performed, and patient medications and allergieswere reviewed. The patient is competent. The risks and benefits of the procedure and the sedation optionsand risks were discussed with the patient. Allquestions were answered and informed consent was obtained. Patient identification and proposed procedure were verified by the physician, the nurse, the anesthesiologist, the meat and seafood manager and thetechnician in the pre-procedure area in the endoscopy suite. Mental Status Examination: alert and oriented.Airway Examination: normal oropharyngeal airway and neck mobility. Respiratory Examination: clear to auscultation. CV Examination: normal. Prophylactic Antibiotics: The patient does not requireprophylactic antibiotics. Prior Anticoagulants: The patient has taken no anticoagulant or antiplatelet agents. ASA Grade Assessment: II - A patient with severesystemic disease. After reviewing the risks and benefits,the patient was deemed in satisfactory condition to undergo the procedure. The anesthesia plan was touse monitored anesthesia care (MAC). Immediately priorto administration of medications, the patient was re-assessed for adequacy to receive sedatives. The heart rate, respiratory rate, oxygen saturations, blood pressure, adequacy of pulmonary ventilation,and response to care were monitored throughout the procedure. The physical status of the patient was re-assessed after the procedure. After I obtained informed consent, the scope was passed under direct vision. Throughout theprocedure, the patient's blood pressure, pulse, and oxygen saturations were monitored continuously. The Colonoscope was introduced through the anus and advanced to the terminal ileum. The colonoscopy was performed without difficulty. The patient tolerated the procedure well. The quality of the bowel preparation was good. Findings: The perianal and digital rectal examinations were normal. Non-bleeding internal hemorrhoids were found. The hemorrhoids were medium-sized. A 6 mm polyp was found in the cecum. The polyp was sessile. The polyp was removed with a cold snare. Resection and retrieval were complete. Estimatedblood loss was minimal. The colon (entire examined portion) appearednormal. Biopsies were taken with a cold forceps forhistology. Estimated blood loss was minimal. The exam was otherwise without abnormality ondirect and retroflexion views. Procedure Code(s): --- Professional --- 38422, Colonoscopy, flexible; with removal of tumor(s), polyp(s), or other lesion(s) by snare technique 22433, 59, Colonoscopy, flexible; with biopsy,single or multiple Diagnosis Code(s): --- Professional --- K64.8, Other hemorrhoids D12.0, Benign neoplasm of cecum CPT copyright 2020 [employer]. All rights reserved. The codes documented in this report are preliminary and upon lead software qa engineer reviewmay be revised to meet current compliance requirements. ALIREZA Gan DO 08/06/2024 3:56:43 PM This report has been signed electronically.Alireza Gan DO Number of Addenda: 0 Note Initiated On: 08/06/2024 3:28 PM Scope Withdrawal Time: 0 hours 6 minutes 42 seconds Scope In: 3:42:05 PM Scope Out: 3:54:14 PM Endoscopy Department at [facility] - [address] [place] [id number] IMPRESSION: - Non-bleeding internal hemorrhoids. - One 6 mm polyp in the cecum, removed with a cold snare. Resected and retrieved. - The entire examined colon is normal. Biopsied. - The examination was otherwise normal on directand retroflexion views. Recommendation: - - Discharge patient to home. - High fiber diet. - Continue present medications. - Await pathology results. - Repeat colonoscopy for surveillance based on pathology results. - Functional constipation suspected. Treatment assuch recommended. Result [facility] Alireza Gan DO GI~PROCEDURE ORDERABLES Final Re sult * Depression Screening (01/23/2024) Depression Screening abstracted Historical Provider HEALTH MAINTENANCE Final Result * Pap Smear (04/15/2020) Pap smear no interpretation , abstracted Historical Provider HEALTH MAINTENANCE Final Result from Last 3 Months or Most Recently Relevant to Health Maintenance Insurance [facility] Member Subscriber Plan / Payer (Ef fective 2018-Present) Name:VIJI ALFONSO Relation to Subscriber:Self Name:Viji Alfonso Payer ID:[id number] Group ID:[id number] Type:Not on file Address: [place] [phone] [facility] Care Teams Control Room Agent Relationship Specialty Start Date End Date Sosa Piper MD [address] [place] [id number] PCP - General Internal Medicine 11/08/21
--- OUTSIDE RECORDS SUMMARY | 2025-05-19 14:08 | XMS_ITS ---
Author Name [facility] Organization Unknown Care Team Organization Name Specialty Phone Email Start Date End Da te [facility] Sosa Piper MD Primary Care 08/31/2022 02/12/2024 [facility] KALYAN BAKER Primary Care 05/03/2022 02/12/20 24
--- OUTSIDE RECORDS SUMMARY | 2025-05-19 14:08 | XMS_ITS | Data Portability ---
Author Organization [place] - [facility], Allergy Address [address] [address] Care Team Providers Care Administrative Office Manager Name Role Phone DEANNA SARGENT Primary Care Provider [phone] Assessment Encounter Date Assessment Date Assessment LastModified by Organization Details LastModified Time 03/01/2024 03/01/2024 Physical examination today was benign. I reviewed her recent MRI showing resolved right maxillary retention cyst. There was evidence of left side maxillary sinus air-fluid level but I believe that has resolved. Her otologic examination in the office was benign. She has had several visits with urgent care and primary care with notation of middle ear effusion. Fortunately that has resolved and her audiometric testing confirms type a tympanometry and normal hearing levels bilaterally. No specific intervention is recommended for her, she may follow-up as needed [email or web address] Not available 03/01/2024 15:18:36 Plan of Treatment Reminders Order Date Submit Date Provider Last Modified By Organization Details Last Modified Time Details Appointments None record ed. Lab None record ed. Referral None record ed. Procedures None record ed. Surgeries None record ed. Imaging None record ed. Medication Orders None record ed. Patient TargetsNo targets recorded. Patient InstructionsNo instructions recorded. Reason for Referral None Reported. Results Created Date Observation Date Name Description Value Unit Range Abnormal Flag Note LastModifiedBy Organization Detail LastModifiedTime 02/13/20 24 08/10/2020 imagi ng/di agnos tic resul t No observ ation record ed. [email or web address] Not Available 12:00:32 03/04/20 24 audio gram No observ ation record ed. [email or web address] Not Available 2023 11:07:58 Result Notes None recorded. Problems Name Problem SNOMED Code Status Onset Date Resolution Date Notes Provider Name and Address Organization Details Recorded Time Polyp of nasal cavity 633232185 Completed 201501/26/2024 Polyp of nasal cavity; Note: Date Diagnose d: 6 4:16 PM (J33.0) Not Available [facility] 4 02:55:34 Chronic maxillar y sinusiti s 48425900 Active 2015 Chronic maxillar y sinusiti s; Note: Date Diagnose d: 6 4:11 PM (J32.0) Not Available [facility] 4 02:55:35 Chronic sinusiti s 57525652 Active 2015 Chronic sinusiti s; Note: Date Diagnose d: 6 2:13 PM (473.9) Not Available [facility] 4 02:55:35 Allergic rhinitis 82400095 Active 2015 Perennia l allergic rhinitis ; Note: Date Diagnose d: 11/25/2015 3:25 PM (J30.89) Not Available [facility] 4 02:55:38 Fibromya lgia 140506414 Active 2016 Fibromya lgia; Note: Date Diagnose d: 7 2:58 PM (M79.7) Not Available [facility] 4 02:55:37 Polyp of nasal sinus 51927580 Active 2017 Maxillar y polyp of sinus; Note: Date Diagnose d: 8 2:00 PM (J33.8) LISA OLIVEIRA MD [address] [place] [address], [place], [address] , [facility] - [facility] 4 09:00:33 Postoper ative visit 492700590 Active 2017 Post Op Visit; Note: Date Diagnose d: 8 1:30 PM (V67.0) Not Available [facility] 4 02:55:38 Follow-u p visit Active 2017 Medical surveill ance followin g complete d treatmen t; Note: Date Diagnose d: 8 12:18 PM (Z09) Encoun ter for follow-u p examinat ion after complete d treatmen t for conditio ns other than malignan t neoplasm ; Note: Date Diagnose d: 11/02/2015 9:09 AM (Z09) ; Start Date : 11/02/19 16 Not Available [facility] 4 02:55:36 Posterio r rhinorrh ea 54281742 Active 2019 Postnasa l drip; Note: Date Diagnose d: 04/07/20 1:01 PM (R09.82) Not Available [facility] 4 02:55:35 Cough 59625710 Active 2019 Cough; Note: Date Diagnose d: 04/07/20 1:01 PM (R05) Not Available [facility] 4 02:55:38 Jaw pain 124128983 Active 2020 Jaw pain; Note: Date Diagnose d: 06/29/2020 9:38 AM (R68.84) Not Available [facility] 4 02:55:36 Tension- type headache 833998885 Active 2020 Tension headache NOS; Note: Date Diagnose d: 10:19 AM (G44.209 ) Not Available [facility] 4 02:55:34 Abnormal auditory percepti on 38330673 Active 2023 MOE VERAS [address] [place] [address], [phone] , [place] - [facility] 4 15:07:09 Problem Notes None recorded. Procedures Surgical History Date Name Laterality Status Provider Name and Address Organization Details Recorded Time 4 Comp Audio with Tymps - 44776 & 43004 completed MOE VERAS [address] [address], [place], [address], [place] - [facility] 03/01/2024 15:06:44 Sinus Surgery completed Marleni Sandhu [place] - [facility] 03/01/2024 14:04:28 Imaging Results None recorded. Procedure Notes None recorded. Medical Equipment None Reported. Allergies Allergen ID Allergen Name Allergen Category Reaction Reaction Severity Criticality Documentation Date Start Date Code Code System Note Provider Name and Address Organization Details Recorded Time 336636 Bactrim medicatio n other Not available Not available 11/07/2023 82720 9 RxNorm React ion: unkno wn, unspe cifie d;; Not Available [facility] 4 01:21:24 204387 amoxicill in medicatio n other Not available Not available 11/07/2023 723 RxNorm React ion: unkno wn, unspe cifie d;; Not Available [facility] 4 01:21:24 194882 Substance with sulfonami de structure and antibacte rial mechanism of action (substanc e) medicatio n other Not available Not available 11/07/2023 57773 8003 SNOMED React ion: unkno wn, unspe cifie d;; Not Available [facility] 4 01:21:26 Medications Name Sig Start Date Stop Date Status Note LastModified by Organization Details LastModified Time carisopro dol 350 mg tablet 08/31 completed Medicati on ID: [id number] B rand Name: carisopr odol Sen d Method: E-Prescr ibed Sub s Allowed: subs OK Speci al Instruct ion: TAKE 1 TABLET BY MOUTH THREE TIMES A DAY NEEDED FOR SPASM Me dication GenericN madhav: carisopr odol Not Available Not Available Not Available cyclobenz aprine 10 mg tablet TAKE 1 TABLET BY MOUTH TWICE A DAY NEEDED FOR 30 DAYS active Not Available Not Available No t Available venlafaxi ne ER 75 mg capsule,e xtended release 24 hr 04/07 completed Medicati on ID: [id number] D uration Value: 30 Brand Name: venlafax ine Send Method: E-Prescr ibed Sub s Allowed: subs OK Medic ationGen ericName : venlafax ine Not Available Not Available Not Available doxycycli ne hyclate 100 mg capsule 03/27 completed Medicati on ID: [id number] D uration Value: 10 Prescri bed By Name: MARIA L Martinez nd Name: doxycycl ine hyclate Send Method: E-Prescr ibed Sub s Allowed: subs OK Speci al Instruct ion: Take 1 PO bid X 10 days Med icationG enericNa me: doxycycl ine hyclate Not Available Not Available Not Available verapamil 40 mg tablet TAKE 1 TABLET BY MOUTH TWICE A DAY FOR 90 DAYS 03/01 completed Not Available Not Available Not Available azithromy ino 250 mg tablet TAKE 2 TABLETS BY MOUTH TODAY, THEN TAKE 1 TABLET DAILY FOR 4 DAYS DIRECTED 03/01 completed Not Available Not Available Not Available ibuprofen 800 mg tablet active Medicati on ID: [id number] B rand Name: ibuprofe n Send Method: E-Prescr ibed Sub s Allowed: subs OK Medic ationGen ericName : ibuprofe n Not Available Not Available Not Available alprazola m 1 mg tablet TAKE 1 TABLET IN THE MORNING AND AT BEDTIME AND 1/2 TAB AT 1PM ORALLY DIRECTED 90 DAYS active Not Available Not Available No t Available fluconazo le 150 mg tablet 03/01 completed Medicati on ID: [id number] B rand Name: fluconaz ole Send Method: E-Prescr ibed Sub s Allowed: subs OK Medic ationGen ericName : fluconaz ole Not Available Not Available Not Available methylphe nidate 10 mg tablet 1 TABLET ON EMPTY STOMACH ORALLY TWICE A DAY NEEDED FOR 30 DAYS active Not Available Not Available No t Available valacyclo vir 1 gram tablet TAKE 1 TABLET BY MOUTH THREE TIMES A DAY FOR 7 DAYS 03/01 completed Not Available Not Available Not Available clarithro mycin 500 mg tablet 1 tablet by mouth 03/01 completed Medicati on ID: [id number] D uration Value: 10 Prescri bed By Name: Vitaliy Wood nd Name: clarithr omycin S end Method: E-Prescr ibed Sub s Allowed: subs OK Medic ationGen ericName : clarithr omycin Not Available Not Available Not Available tretinoin 0.025 % topical cream APPLY A PEA-SIZE D AMOUNT TO ENTIRE FACE START 2NIGHTS A WEEK AND GRADUALL Y INCREASI NG TOLERATE D. 03/01 completed Not Available Not Available Not Available meloxicam 15 mg tablet 08/31 completed Medicati on ID: [id number] B rand Name: kemar higuera Send Method: E-Prescr ibed Sub s Allowed: subs OK Speci al Instruct ion: TAKE 1 TABLET BY MOUTH EVERY DAY Medi cationGe nericNam e: meloxica m Not Available Not Available Not Available prednison e 20 mg tablet TAKE 2 TABLETS BY MOUTH DAILY FOR 3 DAYS TAKE 1 TABLET DAILY FOR 3 DAYS WITH FOOD 03/01 completed Not Available Not Available Not Available sertralin e 100 mg tablet 09/27 completed Medicati on ID: [id number] D uration Value: 30 Reason: () Brand Name: sertrali ne Send Method: E-Prescr ibed Sub s Allowed: subs OK Speci al Instruct ion: TAKE 1 1/2 TABLETS ONCE A DAY ORALLY 30 DAYS Med icationG enericNa me: sertrali ne Not Available Not Available Not Available cyanocoba gail (vit B-12) 1,000 mcg tablet TAKE 1 TABLET BY MOUTH EVERY DAY 03/01 completed Not Available Not Available Not Available doxycycli ne monohydra te 100 mg tablet 08/31 completed Medicati on ID: [id number] B rand Name: doxycycl ine monohydr ate Send Method: E-Prescr ibed Sub s Allowed: subs OK Speci al Instruct ion: TAKE 1 TABLET BY MOUTH TWICE A DAY FOR 10 DAYS Med icationG enericNa me: doxycycl ine monohydr ate Not Available Not Available Not Available tramadol 50 mg tablet TAKE 1 TABLET BY MOUTH EVERY 8 HOURS NEEDED (30 DAYS) active Not Available Not Available No t Available amitripty line 50 mg tablet 02/08 completed Medicati on ID: [id number] D uration Value: 30 Reason: () Brand Name: amitript yline Se nd Method: E-Prescr ibed Sub s Allowed: subs OK Medic ationGen ericName : amitript yline Not Available Not Available Not Available ciclopiro x 8 % topical solution APPLY TOPICALL Y AT BEDTIME FOR 90 DAYS. 03/01 completed Not Available Not Available Not Available oxycodone -acetamin ophen 5 mg-325 mg tablet 04/12 completed Medicati on ID: [id number] D uration Value: 7 Brand Name: oxycodon e-acetam inophen Send Method: E-Prescr ibed Sub s Allowed: subs OK Speci al Instruct ion: TAKE 1 TABLET BY MOUTH EVERY 8 HOURS NEEDED Sulaiman Andino Name: oxycodon e-acetam inophen Not Available Not Available Not Available ofloxacin 0.3 % ear drops PLEASE SEE ATTACHED FOR DETAILED DIRECTIO NS 03/01 completed Not Available Not Available Not Available propranol ol 40 mg tablet 08/31 completed Medicati on ID: [id number] B rand Name: proprano lol Send Method: E-Prescr ibed Sub s Allowed: subs OK Speci al Instruct ion: TAKE 1 TABLET BY MOUTH TWICE A DAY Medi cationGe nericNam e: proprano lol Not Available Not Available Not Available famotidin e 20 mg tablet TAKE 1 TABLET BY MOUTH EVERY DAY FOR 14 DAYS 03/01 completed Not Available Not Available Not Available amitripty line 25 mg tablet 08/31 completed Medicati on ID: [id number] B rand Name: amitript yline Se nd Method: E-Prescr ibed Sub s Allowed: subs OK Speci al Instruct ion: TAKE 1 TABLET BY MOUTH EVERYDAY AT BEDTIME Medicati onGeneri cName: amitript yline Not Available Not Available Not Available benzonata te 100 mg capsule 08/31 completed Medicati on ID: [id number] B rand Name: benzonat ate Send Method: E-Prescr ibed Sub s Allowed: subs OK Medic ationGen ericName : benzonat ate Not Available Not Available Not Available naproxen 500 mg tablet,de layed release 09/27 completed Medicati on ID: [id number] D uration Value: 30 Reason: () Brand Name: naproxen Send Method: E-Prescr ibed Sub s Allowed: subs OK Speci al Instruct ion: TAKE 1 TABLET BY MOUTH TWICE A DAY Medi cationGe nericNam e: naproxen Not Available Not Available Not Available nystatin- triamcino lone 100,000 unit/g-0. 1 % topical cream 04/07 completed Medicati on ID: [id number] D uration Value: 28 Brand Name: nystatin -triamci nolone S end Method: E-Prescr ibed Sub s Allowed: subs OK Medic ationGen ericName : nystatin -triamci nolone Not Available Not Available Not Available gabapenti n 300 mg capsule 04/07 completed Medicati on ID: [id number] B rand Name: gabapent in Send Method: E-Prescr ibed Sub s Allowed: subs OK Medic ationGen ericName : gabapent in Not Available Not Available Not Available omeprazol e 20 mg capsule,d elayed release 04/07 completed Medicati on ID: [id number] B rand Name: omeprazo le Send Method: E-Prescr ibed Sub s Allowed: subs OK Medic ationGen ericName : omeprazo le Not Available Not Available Not Available diclofena c sodium 75 mg tablet,de layed release active Medicati on ID: [id number] B rand Name: diclofen ac sodium S end Method: E-Prescr ibed Sub s Allowed: subs OK Medic ationGen ericName : diclofen ac sodium Not Available Not Available Not Available gabapenti n 100 mg capsule active Medicati on ID: [id number] B rand Name: gabapent in Send Method: E-Prescr ibed Sub s Allowed: subs OK Medic ationGen ericName : gabapent in Not Available Not Available Not Available azelastin e 137 mcg (0.1 %) nasal spray active Not Available Not Available Not Available albuterol sulfate HFA 90 mcg/actua tion aerosol inhaler 08/31 completed Medicati on ID: [id number] B rand Name: albutero l sulfate Send Method: E-Prescr ibed Sub s Allowed: subs OK Speci al Instruct ion: INHALE 2 PUFFS EVERY 4 HOURS NEEDED FOR DIFFICUL TY BREATHIN G Medica tionGene ricName: albutero l sulfate Not Available Not Available Not Available propranol ol 20 mg tablet TAKE 1 TABLET DAILY X1 WK THEN 1 TABLET TWICE A DAY ORALLY DIRECTED 30 DAY(S) 03/01 completed Not Available Not Available Not Available Abie 5 mg-325 mg tablet 1-2 tablet by mouth 03/01 completed Medicati on ID: [id number] D uration Value: 5 Prescri bed By Name: Vitaliy Wood nd Name: Abie Se nd Method: E-Prescr ibed Sub s Allowed: subs OK Medic ationGen ericName : Abie Not Available Not Available Not Available ondansetr on 4 mg disintegr ating tablet TAKE 1 TABLET BY MOUTH EVERY 8 HOURS NEEDED FOR NAUSEA AND VOMITING FOR 3 DAYS 03/01 completed Not Available Not Available Not Available fluticaso ne propionat e 50 mcg/actua tion nasal spray,radha pension 08/31 completed Medicati on ID: [id number] B rand Name: fluticas one propiona te Send Method: E-Prescr ibed Sub s Allowed: subs OK Medic ationGen ericName : fluticas one propiona te Not Available Not Available Not Available sertralin e 50 mg tablet 08/31 completed Medicati on ID: [id number] B rand Name: sertrali ne Send Method: E-Prescr ibed Sub s Allowed: subs OK Medic ationGen ericName : sertrali ne Not Available Not Available Not Available naproxen 500 mg tablet active Medicati on ID: [id number] B rand Name: naproxen Send Method: E-Prescr ibed Sub s Allowed: subs OK Medic ationGen ericName : naproxen Not Available Not Available Not Available Denta 5000 Plus 1.1 % cream USE DIRECTED BEFORE BEDTIME 03/01 completed Not Available Not Available Not Available etonogest rel 0.12 mg-ethiny l estradiol 0.015 mg/24 hr vaginal ring INSERT 1 VAGINAL RING EVERY MONTH BY VAGINAL ROUTE FOR 28 DAYS. active Not Available Not Available No t Available Allergy Relief D-24hr 10 mg-240 mg tablet,ex tended release TAKE 1 TABLET BY MOUTH EVERY DAY active Not Available Not Available No t Available cholecalc iferol (vitamin D3) 1,250 mcg (50,000 unit) capsule active Medicati on ID: [id number] B rand Name: cholecal ciferol (vitamin D3) Send Method: E-Prescr ibed Sub s Allowed: subs OK Medic ationGen ericName : cholecal ciferol (vitamin D3) Not Available Not Available Not Available Allergy Relief-D (cetirizi ne) 5 mg-120 mg tablet,ex tended release TAKE 1 TABLET BY MOUTH 2 TIMES DAILY FOR 360 DAYS. 03/01 completed Not Available Not Available Not Available cholecalc iferol (vitamin D3) 50 mcg (2,000 unit) capsule TAKE 1 CAPSULE BY MOUTH EVERY DAY active Not Available Not Available No t Available Arnuity Ellipta 100 mcg/actua tion powder for inhalatio n 04/07 completed Medicati on ID: [id number] B rand Name: Henrique Sheth Send Method: E-Prescr ibed Sub s Allowed: subs OK Medic ationGen ericName : Henrique Ellipta Not Available Not Available Not Available naloxone 4 mg/actuat ion nasal spray USE DIRECTED NASALLY 30 DAYS active Not Available Not Available No t Available Vitals None Recorded Social History None recorded. Functional Status None recorded. Mental Status None recorded. Family History Nothing Reported. Medical History Condition Response Allergies/Hayfever Y Anemia Y Migraines Y Anxiety Y Gynecological HistoryNo gynecological history recorded. Obstetrics History GPAL:G 0 P 0 0 0 0 Past Encounters Encounter ID Performer Location Encounter Start Date Encounter Closed Date Diagnosis/Indication Diagnosis SNOMED-CT Code Diagnosis ICD10 Code Diagnosis IMO Codes Diagnosis Note [id number] LISA OLIVEIRA MD [facility] [address] [address] 03/01/2024 13:52:56 03/01/2024 15:18:52 Abnormal auditory perception [id number] H93.299 Audiologic al evaluation results: Right ear: Normal hearing with excellent word recognitio n. Left ear: Normal hearing with excellent word recognitio n. Tympanomet ry: Right Ear:Type A Left Ear:Type A Health Concerns Section Related Observation LastModified by Organization Detai ls LastModified Time None Recorded Concern Status LastModified by Organization Details LastModified Time None Recorded Advance Directives Directive None Recorded Payers Insurance Date Sequence Insurance Name Policy Number Policy Friend Covered Member ID Friend Member ID Guarantor Name 03/01/2024 1 [facility] (MEDICAID REPLACEMENT - HMO) YOU Agustin [id number] Viji Agustin Notes Date Note Type Note Provider Name and Address Organization Details Recorded Time 03/01/2024 text/html ROS as noted in the HPI has felt fluid in ears intermittently since June.PCP restarted some allergy meds, azelastine migraines have been under control back in school going 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 12/15/23 MRI head [place] -some mucosal thickening in the maxillary sinuses bilaterally with air-fluid level in left maxillary sinus. Resolved large retention cyst in right maxillary sinus. LISA OLIVEIRA MD [address] [place] [address], [place], [address], [place] - [facility] 03/01/2024 15:18:50 OBGyn Episode No OBEpisode recorded.
== END 2025-05-19 11:34 | disposition home or self-care (01) ==
LOC: HO.HSM 11:00
PROVIDERS: PCP Internal Medicine; Visit Provider Registered Nurse
DX: G43.909 Migraine, unspecified, not intractable, without status migrainosus (principal); F98.8 Other specified behavioral and emotional disorders with onset usually occurring in childhood and adolescence; M50.90 Cervical disc disorder, unspecified, unspecified cervical region; F41.9 Anxiety disorder, unspecified
CPT/HCPCS: 99214

== ENCOUNTER → 2025-05-19 11:00 | Outpatient (BNVA) | payer OTHER, SELFPAY | PROVIDERS: PCP Internal Medicine; Visit Provider Registered Nurse | DX: G43.909 Migraine, unspecified, not intractable, without status migrainosus (principal); F98.8 Other specified behavioral and emotional disorders with onset usually occurring in childhood and adolescence; M50.90 Cervical disc disorder, unspecified, unspecified cervical region; F41.9 Anxiety disorder, unspecified; Z79.899 Other long term (current) drug therapy; Z79.891 Long term (current) use of opiate analgesic | CPT/HCPCS: 99212 ==